=== PATIENT | female | born 1980 | race Caucasian/White ===

== ENCOUNTER → 2016-08-05 | Outpatient (CLI) | payer OTHER ==
--- NOTE | 2016-08-05 14:11 | DX ---
PA lateral chest x-ray 1344 hours. History: Right lower chest pain with decreased sounds on physical exam. Rule out pneumonia. Findings: Comparison to September 20, 2015. Heart size and pulmonary vasculature remain within normal limits. The lungs are clear without consoli dation, effusion, or pneumothorax. The lungs are mildly hyper expanded. Osseous structures are unchan ged. There is mild dextroscoliosis mid thoracic spine and levoscoliosis upper lumbar spine. Impression: 1. No active cardiopulmonary disease seen. 2. Hyperexpanded lungs probably from increased inspiratory effort similar to the prior study. Rule ou t air-trapping. 3. Stable scoliosis.
== END ==
LOC: BMCIMAGING 13:44
PROVIDERS: ATTEND Family Medicine
DX: R07.9 Chest pain, unspecified (principal); R09.89 Other specified symptoms and signs involving the circulatory and respiratory systems

== ENCOUNTER 2018-12-01 14:54 | Emergency (ER) | payer OTHER ==
[2018-12-01 14:59] VITALS: BP 130/64
--- NOTE | 2018-12-01 15:08 | EDPHY ---
H & P Stated Complaint: Fall/snowboarding Time Seen by Provider: 12/01/18 15:00 HPI/ROS: CHIEF COMPLAINT: Chest pain, nasal swelling HISTORY OF PRESENT ILLNESS: Patient is a 37-year-old female who comes to the emergency department complaining of chest pain and nasal swelling. [place] and fell around 10:00 a.m. She landed chest 1st onto the edge of a berm. It knocked the wind out of her for several minutes. She noticed later that she also had swelling at the bridge of her nose. No epistaxis. No difficulty breathing. She had a mild headache initially but that has since resolved. No neck pain. She was wearing a helmet and goggles. No extremity injuries. No abdominal pain. Severity: Moderate Modifying factors: None REVIEW OF SYSTEMS: Constitutional: denies: chills, fever, recent illness, recent injury EENTM: See HPI Respiratory: See HPI Cardiac: denies: chest pain, irregular heart rate, lightheadedness, palpitations Gastrointestinal/Abdominal: denies: abdominal pain, diarrhea, nausea, vomiting, blood streaked stools Genitourinary: denies: dysuria, frequency, hematuria, pain Musculoskeletal: denies: joint pain, muscle pain Skin: denies: lesions, rash, jaundice, bruising Neurological: denies: headache, numbness, paresthesia, tingling, dizziness, weakness Hematologic/Lymphatic: denies: blood clots, easy bleeding, easy bruising Immunologic/allergic: denies: HIV/AIDS, transplant 10 systems reviewed and negative except as noted EXAM: GENERAL: Well-appearing, well-nourished and in no acute distress. HEAD: Atraumatic, normocephalic. EYES: Pupils equal round and reactive to light, extraocular movements intact, sclera anicteric, conjunctiva are normal. ENT: TMs normal, nasal bridge swelling, not deviated, no crepitus. No septal hematoma, nares patent, oropharynx clear without exudates. Moist mucous membranes. NECK: Normal range of motion, supple without lymphadenopathy or JVD. LUNGS: No tenderness to palpation, Breath sounds clear to auscultation bilaterally and equal. No wheezes rales or rhonchi. HEART: Regular rate and rhythm without murmurs, rubs or gallops. ABDOMEN: Soft, nontender, normoactive bowel sounds. No guarding, no rebound. No masses appreciated. BACK: No CVA tenderness, no spinal tenderness, step-offs or deformities EXTREMITIES: Normal range of motion, no pitting or edema. No clubbing or cyanosis. NEUROLOGICAL: Cranial nerves II through XII grossly intact. Normal speech, normal gait. 5/5 strength, normal movement in all extremities, normal sensation , normal reflexes PSYCH: Normal mood, normal affect. SKIN: Warm, dry, normal turgor, no visible rashes or lesions. Source: Patient Exam Limitations: No limitations - Personal History LMP (Females 10-55): 8-14 Days Ago Current Tetanus/Diphtheria Vaccine: Yes - Medical/Surgical History Hx Asthma: No Hx Chronic Respiratory Disease: No Hx Diabetes: No Hx Cardiac Disease: No Hx Renal Disease: No Hx Cirrhosis: No Hx Alcoholism: No Hx HIV/AIDS: No Hx Splenectomy or Spleen Trauma: No Other PMH: DENIES - Family History Significant Family History: No pertinent family hx - Social History Smoking Status: Never smoked Alcohol Use: None Constitutional: Initial Vital Signs Temperature (C) 36.5 C 12/01/18 14:56 Heart Rate 70 12/01/18 14:56 Respiratory Rate 18 12/01/18 14:56 Blood Pressure 130/64 H 12/01/18 14:56 O2 Sat (%) 98 12/01/18 14:56 O2 Delivery Mode Room Air Allergies/Adverse Reactions: No Known Allergies Allergy (Unverified 12/01/18 14:59) Home Medications: Medication Instructions Recorded Amoxicillin 500 mg PO TID 7 Days cap 03/28/16 Aviane-28 Tablet 03/28/16 Medical Decision Making - Diagnostics Imaging: Discussed imaging studies w/ stock raiser Radiologist ED Course/Re-evaluation: We discussed the x-ray results. Patient is reassured. We discussed pain control including ice and rest. We will wrap chest with Cesar bandage to see if this helps. Discussed indications for returning. She is happy with this and declines further workup or testing. Differential Diagnosis: Partial list of the Differential diagnosis considered include but were not limited to; rib fracture, pneumothorax, nasal bone fracture, concussion and although unlikely based on the history and physical exam, I also considered cervical spine injury, PE, acute coronary disease. Departure - Departure Disposition: Home, Routine, Self-Care Clinical Impression: Rib pain on right side Nasal bones, closed fracture Qualifiers: Encounter type: initial encounter Qualified Code(s): S02.2XXA - Fracture of nasal bones, initial encounter for closed fracture Condition: Good Instructions: Nasal Fracture (ED), Rib Contusion (ED) Referrals: Yolette Garcia MD [Primary Care Provider] - As per Instructions Zahira Nguyen PA [Physician Valuer] - As per Instructions
== END 2018-12-01 15:50 | disposition home or self-care (01) ==
DX: S02.2XXA Fracture of nasal bones, initial encounter for closed fracture (principal); R07.81 Pleurodynia; V00.311A Fall from snowboard, initial encounter; Y93.23 Activity, snow (alpine) (downhill) skiing, snowboarding, sledding, tobogganing and snow tubing; Y92.828 Other wilderness area as the place of occurrence of the external cause